=== PATIENT | female | born 1950 | race Caucasian/White ===

== ENCOUNTER 2024-02-14 07:29 | Emergency (ER) | payer MEDICARE, OTHER ==
[2024-02-14] MEDS ORDERED: Sodium Chloride 0.9% 10 ML Syringe FLUSH PRN (07:51)
[2024-02-14] MEDS: Lactated Ringers 1,000 ML IV ONE (07:55)
[2024-02-14 07:57] LABS: BASOPHILS PERCENT AUTO 0.4 % (0.0-1.0); EOSINOPHILS PERCENT AUTO 0.6 % (1.0-3.0); HEMATOCRIT 33.5 % (37.0-47.0); HEMOGLOBIN 11.3 g/dL (12.0-16.0); LYMPHOCYTES PERCENT AUTO 2.5 % (20.5-50.1); MEAN CORPUSCULAR HEMOGLOBIN 27.9 pg (27.0-34.0); MEAN CORPUSCULAR HGB CONC 33.7 g/dL (33.0-35.0); MEAN CORPUSCULAR VOLUME 82.7 fL (80-100); NEUTROPHILS PERCENT AUTO 90.5 % (42.2-75.2); PLATELET COUNT,PLT 157 10^3/uL (150-450); RED BLOOD CELL COUNT 4.05 10^6/uL (4.2-5.4)
[2024-02-14 08:19] LABS: ALBUMIN 2.2 g/dL (3.4-5.0); ANION GAP 14.7 mEq/L (7-13); BILIRUBIN TOTAL 1.1 mg/dL (0.2-1.0); BUN/CREATININE RATIO 15.5 (No establ ref range); CALCIUM 8.7 mg/dL (8.5-10.1); CREATININE 1.16 mg/dL (0.55-1.02); EST CRCL DRUG DOSING (CG) 34.02 mL/min; MAGNESIUM 1.9 mg/dL (1.8-2.4); POTASSIUM,K 2.7 mmol/L (3.5-5.1); PROTEIN TOTAL,TP 5.9 g/dL (6.4-8.2)
[2024-02-14 08:20] LABS: A/G RATIO 0.59
[2024-02-14 08:21] LABS: INR 1.4 (0.9-1.2); PROTHROMBIN TIME 14.3 SEC (9.0-12.0); PTT,PARTIAL THROMBOPLSTIN TIME 32.8 SEC (22.0-34.0)
[2024-02-14 08:23] LABS: LACTIC ACID 3.9 mmol/L (0.4-2.0)
[2024-02-14] MEDS: Iopamidol 612 MG/ML 100 ML Bottle IVPUSH ONE (08:40)
[2024-02-14] MEDS: Iopamidol 755 Mg/ML 100 ML Bottle IV ONE (08:40)
[2024-02-14 08:50] LABS: APPEARANCE,URINE CLEAR (CLEAR); BILIRUBIN,URINE NEGATIVE (NEGATIVE); COLOR,URINE DARK YELLOW (YELLOW); GLUCOSE,URINE NEGATIVE (NEGATIVE); KETONES,URINE NEGATIVE (NEGATIVE); LEUKOCYTE ESTERASE,URINE TRACE (NEGATIVE); NITRITE,URINE NEGATIVE (NEGATIVE); OCCULT BLOOD,URINE TRACE-INTACT (NEGATIVE); PROTEIN,URINE 30 (NEGATIVE)
[2024-02-14 08:59] LABS: BACTERIA,URINE FEW /HPF (0-FEW/HPF); EPITHELIAL CELLS,URINE FEW /HPF (NOT SEEN); HYALINE CASTS,URINE MODERATE; MUCUS,URINE MODERATE /LPF (NOT SEEN); WBC,URINE 20-30 /HPF (0-5/HPF)
[2024-02-14] MEDS: Potassium Chloride 20 MEQ in Premix Bag 1 BAG IV ONE (09:01)
[2024-02-14] MEDS: Magnesium Oxide 400 MG Tab PO ONE (09:02)
[2024-02-14] MEDS: Potassium Chloride 10 MEQ Tab.ER PO ONE (09:02)
[2024-02-14] MEDS: Lactated Ringers 1,000 ML IV SCH (09:10)
[2024-02-14] MEDS: Heparin Sodium 5,000 Units/ML Vial IV ONE (11:36)
[2024-02-14] MEDS: Heparin Sodium/0.45% NaCl 25,000 UNITS/500 ML BAG IV SCH (11:39)
== END 2024-02-14 12:20 ==
LOC: DL.ED 07:29
DX: J45.902 Unspecified asthma with status asthmaticus (principal); E86.0 Dehydration; N39.0 Urinary tract infection, site not specified; C34.90 Malignant neoplasm of unspecified part of unspecified bronchus or lung; C79.89 Secondary malignant neoplasm of other specified sites; I10 Essential (primary) hypertension; Z87.891 Personal history of nicotine dependence; Z86.16 Personal history of COVID-19; Z79.899 Other long term (current) drug therapy; Z88.0 Allergy status to penicillin; Z88.8 Allergy status to other drugs, medicaments and biological substances
CPT/HCPCS: 36415; 71046; 71275; 74177; 80053; 81001; 83605; 83690; 83735; 83880; 84484; 85025; 85379; 85610; 85730; 87040; 87086; 87088; 87186; 87428-QW; 93005; 93010; 96365; 96366; 96367; 96368; 99285; 99285-25; A9270-GY; J1644; J3480; J3490; J7050; J7120; Q9967